=== PATIENT | female | born 1950 | race Caucasian/White ===

== ENCOUNTER → 2024-02-02 09:02 | Outpatient (REF) | payer OTHER, SELFPAY | LOC: RAD 09:02 | PROVIDERS: ATTENDING PHYSICIAN Surgery Vascular Surgery | DX: I77.9 Disorder of arteries and arterioles, unspecified (principal); I65.22 Occlusion and stenosis of left carotid artery | CPT/HCPCS: 93880; 93922; 93925 ==

== ENCOUNTER → 2024-08-01 08:58 | Outpatient (REF) | payer OTHER, SELFPAY | LOC: RAD 08:58 | PROVIDERS: ATTENDING PHYSICIAN Registered Nurse; FAMILY PHYSICIAN Nurse Practitioner Adult Health | DX: I65.22 Occlusion and stenosis of left carotid artery (principal) | CPT/HCPCS: 93880; 93922 ==

== ENCOUNTER → 2025-02-08 10:53 | Outpatient (REF) | payer OTHER, SELFPAY | LOC: RAD 10:53 | PROVIDERS: ATTENDING PHYSICIAN Surgery Vascular Surgery; FAMILY PHYSICIAN Nurse Practitioner Adult Health | DX: I65.22 Occlusion and stenosis of left carotid artery (principal); I77.9 Disorder of arteries and arterioles, unspecified | CPT/HCPCS: 75635; Q9967 ==